=== PATIENT | female | born 1955 | race Caucasian/White ===

== ENCOUNTER → 2016-03-27 | Outpatient (CLI) | payer OTHER ==
--- NOTE | 2016-03-27 17:00 | DIAGNOSTIC IMAGING REPORT ---
PROCEDURE: MG BILATERAL SCREENING W/CAD INDICATION: SCREENING TECHNIQUE: Bilateral CC and MLO digital views. Study is partially limited as the patient is confined to wheelchair and unable to maintain position. COMPARISON: Compared to 12/25/2009, 07/30/2006, and 08/28/2005. FINDINGS: Computer-aided detection applied. Mildly dense parenchymal pattern. No change. No evidence of mass or suspicious calcification. IMPRESSION: 1. Negative mammogram. RESULT CODE: 1- Negative. A. A negative report should not delay biopsy if a dominant or clinically suspicious mass is present. 10-15% of cancers are not identified by x-ray. B. A negative report may reinforce clinical impression. C. Adenosis and dense breasts may obscure an underlying neoplasm. D. False positive reports average 6-10%. E.. A yearly screening mammogram is recommended. A reminder letter will be scheduled.
--- NOTE | 2016-03-27 17:05 | DIAGNOSTIC IMAGING REPORT ---
PROCEDURE: DEXA BONE DENSITY STUDY CLINICAL INDICATION: Screening. Postmenopausal. Multiple sclerosis. COMPARISON: None. FINDINGS: LUMBAR SPINE: Bone mineral density 1.274. T-score 2.1. Normal. LEFT HIP: Bone mineral density 0.87 all. T-score -0.6. Normal. LEFT FEMORAL NECK: Bone mineral density 0.551. T-score -2.7. Osteoporosis. (T score greater or equal to -1.0 to: NORMAL) (T score from -1.1 to -2.4: OSTEOPENIA) (T score ess than or equal to -2.5: OSTEOPOROSIS) IMPRESSION: 1. Normal bone density of the lumbar spine. 2. Overall normal bone density of the left hip, although there is osteoporosis of the left femoral neck.
== END ==
LOC: XR SRH 03-18 14:00 → MAM SRH 03-18 14:00 → XR SRH 03-18 14:45 → MAM SRH 13:30
DX: G35 Multiple sclerosis (principal); M81.8 Other osteoporosis without current pathological fracture